=== PATIENT | female | born 1990 | race African-American/Black ===

== ENCOUNTER 2017-07-08 20:35 | Emergency (ER) | payer OTHER ==
[~2017-07-08] VITALS: Ht 175.3 cm; Wt 85.0 kg
[~2017-07-08 20:35] MED LIST: CYCL-36 PO; DICL-86 PO; Z.0.NO CURRENT MEDS
[2017-07-08 20:36] VITALS: BP 176/105; PULSE 120; RESP 18; TEMP 98.9; O2SAT 98
[2017-07-08 21:12] VITALS: BP 127/87; PULSE 115; RESP 18; O2SAT 98
[2017-07-08] MEDS ORDERED: CLIN1CAP5 PO (23:40)
[2017-07-08] MEDS ORDERED: PRED20 PO (23:40)
--- NOTE | 2017-07-08 23:40 | PD ---
HPI Chief Complaint: ENT Complaint Time Seen by Provider: 23:26 Travel History International Travel<30 days: No Contact w/Intl Traveler<30days: No Traveled to known affect area: No History of Present Illness HPI 27-year-old female complains of sore throat. Patient states that the symptoms started 3 days ago. Patient states that she has dysphagia. Patient states that she has swollen neck glands. Patient states that she has mild nonproductive cough. Patient states that she has occasionally nausea vomiting. Patient denies any chest pain or shortness of breath. PFSH Past Medical History Medical History: Denies Significant Hx Immunizations Current: No Tetanus Vaccination: Unknown Influenza Vaccination: No ?: Not LMP: 06/23/2017 : 0 Past Surgical History Surgical History: No Previous Surgery Social History Tobacco Use: Yes Substance Use: No Allergies-Medications (Allergen,Severity, Reaction): Coded Allergies: No Known Allergies (Verified , 11/17/12) Reported Meds & Prescriptions Reported Meds & Active Scripts Active Flexeril (Cyclobenzaprine HCl) 10 Mg Tab 10 Mg PO TID Voltaren (Diclofenac Sodium) 75 Mg Tabec 75 Mg PO BID Reported No Current Meds (Miscellaneous Medication) Misc Review of Systems General / Constitutional: No: Fever Eyes: No: Visual changes HENT: Positive: Sore Throat, No: Headaches Cardiovascular: No: Chest Pain or Discomfort Respiratory: No: Shortness of Breath Gastrointestinal: No: Abdominal Pain Genitourinary: No: Dysuria Musculoskeletal: No: Pain Skin: No Rash Neurologic: No: Weakness Psychiatric: No: Depression Endocrine: No: Polydipsia Hematologic/Lymphatic: No: Easy Bruising Physical Exam Narrative GENERAL: Well-nourished, well-developed patient. SKIN: Focused skin assessment warm/dry. HEAD: Normocephalic. EYES: No scleral icterus. No injection or drainage. Throat: Erythematous with edema and exudate. NECK: Supple, trachea midline. No JVD. Patient has anterior cervical lymphadenopathy. No meningismus CARDIOVASCULAR: Regular rate and rhythm without murmurs, gallops, or rubs. RESPIRATORY: Breath sounds equal bilaterally. No accessory muscle use. GASTROINTESTINAL: Abdomen soft, non-tender, nondistended. MUSCULOSKELETAL: No cyanosis, or edema. BACK: Nontender without obvious deformity. No CVA tenderness. Data Data Last Documented VS Vital Signs Date Time Temp Pulse Resp B/P (MAP) Pulse Ox O2 Delivery O2 Flow Rate FiO2 07/08/17 21:12 115 18 127/87 (100) 98 Room Air 07/08/17 20:36 98.9 Orders Orders Clindamycin Inj (Cleocin Inj) (07/08/17 23:45) Dexamethasone Inj (Decadron Inj) (07/08/17 23:45) Group A Rapid Strep Screen (07/08/17 23:34) MDM Medical Decision Making Medical Screen Exam Complete: Yes Emergency Medical Condition: Yes Differential Diagnosis Differential diagnosis including strep versus viral pharyngitis, peritonsillar abscess, retropharyngeal abscess. Narrative Course 27-year-old female with sore throat. Clindamycin 600 mg IM. Decadron 8 mg IM. Diagnosis Primary Impression: Tonsillitis Patient Instructions: General Instructions Additional Instructions: Take medications as directed. Tylenol for fever. Follow-up with personal physician. Return if persistent problem or worse. Med/Other Pt SpecificInfo: Prescription(s) given Scripts Prednisone (Prednisone) 20 Mg Tab 20 MG PO BID, #10 TAB 0 Refills Prov: Nehemiah Noel MD 07/08/17 Clindamycin (Clindamycin) 150 Mg Cap 2 TAB PO Q6H for Infection, #80 CAP 0 Refills Prov: Nehemiah Noel MD 07/08/17 Disposition: 01 DISCHARGE HOME Condition: Stable Nehemiah Noel MD Jul 08, 2017 23:40
[2017-07-08] MEDS ORDERED: CLINDAMYCIN PHOS 600 MG/4 ML VIAL IM ONE (23:45)
[2017-07-08] MEDS ORDERED: DEXAMETHASONE SOD PHOS 4 MG/ML VIAL IM ONE (23:45)
== END 2017-07-09 00:20 | disposition home or self-care (01) ==
LOC: NEPD 20:35
DX: J03.90 Acute tonsillitis, unspecified (principal); R11.2 Nausea with vomiting, unspecified; Z72.0 Tobacco use
CPT/HCPCS: 87081; 87880; 96372; 99284; J1100